=== PATIENT | male | born 1985 | race Caucasian/White ===

== ENCOUNTER 2018-10-09 10:36 | Emergency (ER) | payer SELFPAY ==
[~2018-10-09] VITALS: Ht 165.1 cm; Wt 70.0 kg
[2018-10-09] MEDS ORDERED: MIDAZOLAM HCL 2 MG/2 ML VIAL IM ONE (12:30)
[2018-10-09 13:04] LABS: BASOPHILS % 0.3 % (0.0-2.0); HEMATOCRIT. 44.5 % (42.0-52.0); HEMOGLOBIN. 14.9 g/dL (14.0-18.0); LYMPHOCYTES % 10.8 % (20.0-50.0); MEAN CORPUSCULAR HEMOGLOBIN 31.2 pg (28.0-32.0); MEAN CORPUSCULAR VOLUME 92.7 fL (80.0-94.0); MEAN PLATELET VOLUME 7.5 fl (7.4-10.4); MONOCYTES % 10.3 % (2.0-8.0); NEUTROPHILS % 78.6 % (40.0-76.0); PLATELET 296 x1000/uL (130-400); RED CELL DISTRIBUTION WIDTH 12.6 % (11.6-14.6)
[2018-10-09 13:12] LABS: CHLORIDE 102 mEq/L (98-107)
[2018-10-09 13:17] LABS: ETHANOL BLOOD < 10 mg/dL
[2018-10-09 13:18] LABS: *AMPHETAMINES SCREEN URINE NEGATIVE (NEGATIVE); *BARBITURATES SCREEN URINE NEGATIVE (NEGATIVE); *BENZODIAZEPINES SCREEN URINE NEGATIVE (NEGATIVE); *COCAINE SCREEN URINE NEGATIVE (NEGATIVE); CANNABINOID URINE SCREEN PRESUMTIVE POSITIVE (NEGATIVE); METHADONE URINE SCREEN NEGATIVE (NEGATIVE); OPIATES URINE SCREEN NEGATIVE (NEGATIVE); PHENCYCLIDINE URINE SCREEN NEGATIVE (NEGATIVE)
[2018-10-09] MEDS ORDERED: OLANZAPINE 10 MG/VIAL IM ONE (14:45)
[2018-10-09] MEDS ORDERED: POTASSIUM CHLORIDE 20MEQ/PACKET PO ONE (17:45)
[2018-10-10] MEDS ORDERED: LORAZEPAM 2MG/ML CPJ IM ONE (01:45)
[2018-10-10] MEDS ORDERED: OLANZAPINE 10 MG/VIAL IM ONE (02:00)
[2018-10-10] MEDS ORDERED: LORAZEPAM 2MG/ML CPJ IM NR (02:00)
[2018-10-10] MEDS ORDERED: LORAZEPAM 2MG/ML CPJ IM PRN (10:45)
[2018-10-10 18:31] VITALS: BP 117/71
== END 2018-10-10 18:58 | disposition home or self-care (01) ==
LOC: ER 10:36
DX: F29 Unspecified psychosis not due to a substance or known physiological condition (principal); F30.9 Manic episode, unspecified; F12.10 Cannabis abuse, uncomplicated; Z88.1 Allergy status to other antibiotic agents
CPT/HCPCS: 36415; 80053; 80305; 80320; 85025; 93005; 96372; 99284; J2060; J2250; J3490; G0480